=== PATIENT | female | born 1990 | race African-American/Black ===

== ENCOUNTER 2022-07-17 07:48 | Inpatient (IN) ==
[2022-07-17] MEDS ORDERED: CARBOPROST TROMETHAMINE 250 MCG/ML AMP IM PRN (07:56)
[2022-07-17] MEDS ORDERED: METHYLERGONOVINE 0.2 MG/1 ML AMP IM PRN (07:56)
[2022-07-17] MEDS ORDERED: OXYTOCIN/LR 20 UNIT/1,000 ML BAG IV ONE ×2 (07:56→11:24)
[2022-07-17] MEDS ORDERED: ceFAZolin 3,000 MG in SYRINGE 1 EACH IV ONE (07:56)
[2022-07-17] MEDS ORDERED: miSOPROStoL 200 MCG TABLET RECTAL PRN (07:56)
[2022-07-17] MEDS ORDERED: FAMOTIDINE 20 MG/2 ML VIAL IV ONE (07:56)
[2022-07-17] MEDS ORDERED: TRANEXAMIC ACID 1,000 MG in SODIUM CHLORIDE 0.9% 100 ML IV PRN (07:56)
[2022-07-17] MEDS ORDERED: CITRIC ACID/SODIUM CITRATE 30 ML UDCUP PO ONE (07:56)
[2022-07-17] MEDS ORDERED: OXYTOCIN 10 UNIT/ML VIAL IM ONE (08:45)
[2022-07-17] MEDS ORDERED: OXYTOCIN/LR 30 UNIT/1,000 ML BAG IV ONE (08:45)
[2022-07-17 08:55] LABS: Basophils % 0.1 % (0.0-0.8); Eosinophils % 0.6 % (0.00-10.9); Hematocrit 32.1 VOL% (35.7-47.0); Hemoglobin 10.5 GM/DL (12.0-16.0); Immature Granulocytes % 0.4 %; Immature Granulocytes Absolute 0.03 #; Lymphocytes # 1.1 10*3/uL (1.4-4.0); Mean Corpuscular HGB Conc 32.7 GM/DL (32-36); Mean Corpuscular Volume 91.5 FL (87-102); Monocytes # 0.4 10*3/uL (0.11-0.8); Monocytes % 6.5 % (1.7-12.7); Neutrophils % 76.4 % (38.7-73.9); Platelet Count 185 T/CUMM (130-400); Red Blood Count 3.51 MC/CUMM (3.8-5.5); Red Cell Distribution Width 14.2 % (9.3-17.3)
[2022-07-17 09:08] LABS: PT Patient Result 11.1 SECS (10.1-12.1); Partial Thromboplastin Time 28.7 SECS (23.7-32.9)
[2022-07-17 09:13] LABS: Albumin 2.6 G/DL (3.4-5.0); Bilirubin,Total 0.7 MG/DL (0.20-1.00); Osmolality,Calculated 276.4 MOS/KG (273-304); Potassium 3.3 MMOL/L (3.5-5.1); Total Protein 6.9 G/DL (6.4-8.2)
[2022-07-17 09:15] LABS: Bilirubin,Direct 0.2 MG/DL (0.0-0.20); Uric Acid 4.8 MG/DL (2.6-6.0)
[2022-07-17] MEDS ORDERED: ONDANSETRON 4 MG/2 ML VIAL ONE (09:15)
[2022-07-17] MEDS ORDERED: ePHEDrine 50 MG/ML VIAL ONE (09:15)
[2022-07-17] MEDS ORDERED: buprenorphine HCL 0.3 MG/ML VIAL ONE (09:17)
[2022-07-17] MEDS: LACTATED RINGERS 1,000 ML IV SCH ×2 (09:37→12:11)
[2022-07-17] MEDS ORDERED: LACTATED RINGERS 1,000 ML IV ONE (10:10)
[2022-07-17] MEDS ORDERED: PHENYLEPHRINE 1 MG/10 ML SYRINGE IV ONE (10:37)
[2022-07-17 10:39] LABS: Cord Arterial Blood HCO3 21.1 MMOL/L
[2022-07-17 10:42] LABS: Cord Venous Blood HCO3 22.2 MMOL/L; Cord Venous Blood PO2 33.3
[2022-07-17 10:48] LABS: Bacteria,Urine Few /HPF (Few); Mucus,Urine Occasional /LPF (Occasional); RBC,Urine 29 /HPF (0-4); Squamous Epithelial Cell,Urine Occasional /HPF (0-10)
[2022-07-17 10:49] LABS: Bilirubin,Urine Small mg/dL (Negative); Blood, Urine Moderate mg/dL (Negative); Glucose,Urine (UA) Negative (Negative); Ketones,Urine >=160 mg/dL (Negative); Nitrite,Urine Positive (Negative); Protein,Urine 100 mg/dL (Negative); Urine Appearance Slightly Cloudy (Clear); Urine Color Yellow (Yellow); Urine Urobilinogen 0.2 eU/dL (<2.0)
[2022-07-17] MEDS ORDERED: ACETAMINOPHEN 325 MG TABLET PO PRN (11:24)
[2022-07-17] MEDS ORDERED: RHO(D) IMMUNE GLOBULIN 300 MCG SYRINGE IM ONE (11:24)
[2022-07-17] MEDS ORDERED: ONDANSETRON 4 MG/2 ML VIAL IV PRN (11:24)
[2022-07-17] MEDS ORDERED: LACTATED RINGERS 1,000 ML IV SCH (11:30)
[2022-07-17] MEDS: POTASSIUM CHLORIDE RIDER 10 MEQ/100 ML PREMIX IV PRN ×4 (12:08→15:52)
[2022-07-17] MEDS: KETOROLAC 30 MG/1 ML VIAL IV SCH ×3 (12:09→23:58)
[2022-07-17] MEDS: ACETAMINOPHEN 500 MG TABLET PO SCH ×3 (12:09→23:53)
[2022-07-17] MEDS ORDERED: MEPERIDINE 50 MG/1 ML VIAL IV PRN (13:27)
[2022-07-17] MEDS: AMPICILLIN/SULBACTAM 3,000 MG in SODIUM CHLORIDE 0.9% 100 ML IV SCH ×2 (14:03→20:28)
[2022-07-17 19:53] LABS: Basophils % 0.3 % (0.0-0.8); Eosinophils % 0.5 % (0.00-10.9); Hematocrit 31.1 VOL% (35.7-47.0); Hemoglobin 10.1 GM/DL (12.0-16.0); Immature Granulocytes % 0.4 %; Immature Granulocytes Absolute 0.03 #; Lymphocytes # 1.4 10*3/uL (1.4-4.0); Mean Corpuscular HGB Conc 32.5 GM/DL (32-36); Mean Corpuscular Volume 90.9 FL (87-102); Mean Platelet Volume 10.4 FL (9.6-12.0); Monocytes # 0.6 10*3/uL (0.11-0.8); Monocytes % 7.5 % (1.7-12.7); Neutrophils % 72.3 % (38.7-73.9); Platelet Count 171 T/CUMM (130-400); Red Blood Count 3.42 MC/CUMM (3.8-5.5); White Blood Count 7.48 T/CUMM (4-12)
[2022-07-17] MEDS ORDERED: DOCUSATE SODIUM 100 MG CAPSULE PO SCH (21:00)
[2022-07-17] MEDS: DOCUSATE SODIUM 100 MG CAPSULE PO SCH (23:52)
[2022-07-18] MEDS: AMPICILLIN/SULBACTAM 3,000 MG in SODIUM CHLORIDE 0.9% 100 ML IV SCH ×2 (01:47→09:23)
[2022-07-18] MEDS: IBUPROFEN 800 MG TABLET PO PRN ×2 (03:46→15:52)
[2022-07-18] MEDS: KETOROLAC 30 MG/1 ML VIAL IV SCH (05:48)
[2022-07-18] MEDS: ACETAMINOPHEN 500 MG TABLET PO SCH (05:48)
[2022-07-18 06:02] LABS: Basophils % 0.3 % (0.0-0.8); Eosinophils # 0.1 10*3/uL (0.0-0.87); Eosinophils % 1.3 % (0.00-10.9); Hematocrit 30.5 VOL% (35.7-47.0); Hemoglobin 9.7 GM/DL (12.0-16.0); Immature Granulocytes % 0.3 %; Immature Granulocytes Absolute 0.02 #; Lymphocytes # 1.4 10*3/uL (1.4-4.0); Lymphocytes % 20.2 % (21.3-54.2); Mean Corpuscular HGB Conc 31.8 GM/DL (32-36); Mean Corpuscular Volume 91.9 FL (87-102); Mean Platelet Volume 11.4 FL (9.6-12.0); Monocytes # 0.6 10*3/uL (0.11-0.8); Monocytes % 9.1 % (1.7-12.7); Neutrophils % 68.8 % (38.7-73.9); Platelet Count 175 T/CUMM (130-400); Red Blood Count 3.32 MC/CUMM (3.8-5.5); Red Cell Distribution Width 14.2 % (9.3-17.3); White Blood Count 6.69 T/CUMM (4-12)
[2022-07-18] MEDS: MULTIVITAMIN (PRENATAL) TABLET PO SCH (09:17)
[2022-07-18] MEDS: DOCUSATE SODIUM 100 MG CAPSULE PO SCH ×2 (09:17→20:46)
[2022-07-18] MEDS: SIMETHICONE CHEW 80 MG TABLET PO PRN (09:21)
[2022-07-18] MEDS: METOCLOPRAMIDE 10 MG TABLET PO SCH ×2 (09:21→18:01)
[2022-07-18] MEDS: MAGNESIUM HYDROXIDE SUSP 30 ML UDCUP PO PRN (09:22)
[2022-07-18] MEDS: amLODIPine 10 MG TABLET PO SCH (13:40)
[2022-07-18] MEDS: POTASSIUM CHLORIDE 20 MEQ TABLET PO SCH ×2 (15:47→20:45)
[2022-07-18] MEDS: CIPROFLOXACIN 500 MG TABLET PO SCH (20:46)
[2022-07-19] MEDS: METOCLOPRAMIDE 10 MG TABLET PO SCH ×3 (00:06→08:06)
[2022-07-19] MEDS: IBUPROFEN 800 MG TABLET PO PRN ×2 (00:06→08:07)
[2022-07-19] MEDS: MAGNESIUM HYDROXIDE SUSP 30 ML UDCUP PO PRN ×2 (04:14→08:06)
[2022-07-19] MEDS: DOCUSATE SODIUM 100 MG CAPSULE PO SCH (08:06)
[2022-07-19] MEDS: MULTIVITAMIN (PRENATAL) TABLET PO SCH (08:06)
[2022-07-19] MEDS: SIMETHICONE CHEW 80 MG TABLET PO PRN (08:06)
[2022-07-19] MEDS: CIPROFLOXACIN 500 MG TABLET PO SCH (08:06)
[2022-07-19] MEDS: amLODIPine 10 MG TABLET PO SCH (08:07)
[2022-07-19 08:42] VITALS: BP 141/81
== END 2022-07-19 11:05 | disposition home or self-care (01) | DRG 540 ==
LOC: N.LD 07:48 → N.OB 17:10
PROVIDERS: ADMIT Obstetrics & Gynecology; ATTEND Obstetrics & Gynecology
PROC: LDCSECT (ICD-10-PCS; 2022-07-17 10:00)